=== PATIENT | male | born 1955 | race Caucasian/White ===

== ENCOUNTER 2024-01-04 06:32 | Emergency (ER) | payer OTHER, SELFPAY ==
[2024-01-04 06:34] VITALS: BP 197/116
[2024-01-04 06:51] VITALS: BP 198/97
[2024-01-04 07:00] VITALS: BP 193/97
[2024-01-04 07:02] VITALS: BMI 26.2
--- NOTE | 2024-01-04 07:54 | ED.GENMED ---
Addendum entered and electronically signed by Oneal Hansen Jr., PA-C 01/04/24 12:17:
Patient of note had an elevated blood pressure throughout ER stay. He has not been following up with primary care doctor for multiple years. Does not have chest pain or any symptoms consistent with hypertensive emergency. No significant lab
abnormalities. Patient was advised for very close follow-up with a primary care doctor for reassessment as he will likely need chronic blood pressure medication moving forward.
Original Note:
History of Present Illness
General
Chief Complaint: Bowel Problem
Source: patient
Exam Limitations: none
Time Seen by Provider: 01/04/24 06:59
Nursing documentation reviewed up to this point in time: agreed with
Travel History
Have you had any contact with someone who has COVID-19?: No
Do you have any symptoms of coronavirus? Fever > 100 degrees, chills, cough, shortness of breath, sore throat, loss of taste or smell, muscle aches, or headache?: No
History of Present Illness
History of Present Illness:
68-year-old male past medical history of hypertension constipation presenting to the emergency department today with concerns of significant bowel movement changes constipation bloating over the past few weeks. Has tried MiraLAX and mag citrate at
home without relief. Denies specific chest pain nausea vomiting
Review of Systems
Review of Systems
Allergies reviewed?: Yes
All Other Systems: ROS reviewed and negative except as documented in HPI and ROS
Phy Exam
Physical Exam
Physical Exam:
GENERAL: Alert , in no apparent distress
EYE: pupils equal and reactive
NECK: Supple, no significant adenopathy.
ENT: o/p clr, mmm.
CARDIAC: Regular rate and rhythm .
LUNGS: Clear breath sounds bilaterally, no acute respiratory distress, no wheezes/rales/rhonchi
ABDOMEN: Distention soft, without focal tenderness, no r/g, no cvat
NEUROLOGICAL: Alert and oriented, no focal neuro deficits
SKIN: Warm and dry, skin intact.
MUSCULOSKELETAL: No edema, well perfused.
PSYCH: Normal and appropriate interaction.
Course
Orders/Labs/Results
Orders:
Orders
01/04/24 07:28
Iohexol [Omnipaque] See Protocol PO NOW STA
01/04/24 07:29
CT Abd/pel W Iv And Oral Contr Urgent
Comment:
Reason For Exam: abd pain, bowel movement changes recently distensi
01/04/24 08:02
Complete Blood Count/With Diff Urgent
Comprehensive Metabolic Panel Urgent
Lipase Urgent
Urinalysis Reflex To Culture Urgent
Date Specimen was Collected: 01/04/24
Time Specimen was Collected: 07:50
Abnormal Lab Results
01/04/24
08:02
MPV 12.3 H fL
(7.4-10.4)
Absolute Lymphs (auto) 0.9 L 10^3/uL
(1.2-3.4)
Neutrophils % 78.6 H %
(42.2-75.2)
Lymphocytes % 13.6 L %
(20.5-51.1)
Glucose 129 H mg/dl
(70-99)
Calcium 10.3 H mg/dl
(8.4-10.2)
01/04/24 08:02
01/04/24 08:02
Vital Signs
Initial and Last Documented VS:
Initial Vital Signs
Temp Pulse Resp BP Pulse Ox
97.8 F 92 24 197/116 98
01/04/24 06:34 01/04/24 06:34 01/04/24 06:34 01/04/24 06:34 01/04/24 06:34
Last Documented Vital Signs
Temp Pulse Resp BP Pulse Ox
97.8 F 82 16 205/102 98
01/04/24 06:34 01/04/24 10:55 01/04/24 10:55 01/04/24 10:55 01/04/24 10:55
MDM/Problems Addressed
MDM/Problems Addressed:
68-year-old male presenting to the emergency department today with concerns of constipation distention worsening over the past few weeks. Patient denies ever having colonoscopy does not have a primary care doctor. CT scan performed that showed
constipation otherwise no emergent findings advised for close follow-up with GI return precautions given.
*Critical Care Note
Total Time (30-74mins, 75-104mins- exclusive of procedures): Not Applicable
ED Attending Note
-
Portions of this chart may have been created with voice recognition software.� Occasional wrong word or��sound alike� substitutions may have occurred due to the inherent limitations of voice recognition software.
Discharge Plan
Departure
Patient Disposition: Home (Routine Discharge)
Date of Disposition: 01/04/24
Time of Disposition: 12:00
Patient with high blood pressure during this ER visit?: No
Condition: Good
Covid-19: Not Applicable
Discharge Problem:
Constipation
Instructions: Constipation, Adult (DC)
Prescriptions:
New
docusate sodium [Colace] 100 mg capsule
100 mg PO DAILY Qty: 14 0RF
Referrals:
Tereza Lynn MD [Active] - Follow up in 5-7 days
UNKNOWN - PT DOES,NOT KNOW [Family Provider] -
Activity Restrictions/Additional Instructions:
You came to the emergency department today with concerns of bowel movement changes distention. Here you are found to have constipation no emergent findings otherwise. Please take MiraLAX once daily as well as the enema once every few days as well
as Colace 1-2 times daily and follow-up closely with GI for further management. Return to the emergency department for any worsening, new or concerning symptoms.
Interventions
Interventions:
*Risk Screen - Suicide Last Done: 01/04/24 06:34
*General Assessment Last Done: 01/04/24 06:41
*Neglect/Abuse Screening Last Done: 01/04/24 06:34
ED- Fall Risk Assessment Last Done: 01/04/24 06:41
*ED COVID-19 Vaccine History Last Done: 01/04/24 06:41
HZ-Hwzgqo-Jbparxiivp Assessment Last Done: 01/04/24 08:10
Discharge Date and Time
Print Language: INDONESIAN
[2024-01-04 08:00] VITALS: BP 193/107
[2024-01-04] MEDS: OMNIPAQUE 50 ML PO (08:08)
[2024-01-04 08:25] LABS: % Basophils 0.4 % (0-2); % Eosinophils 0.9 % (0-6); % Immature Granulocytes 0.4 % (0-0.5); % Lymphocytes 13.6 % (20.5-51.1); % Monocytes 6.1 % (1.7-9.3); % Neutrophils 78.6 % (42.2-75.2); Absolute Eosinophils 0.1 10^3/uL (0-0.7); Absolute Lymphocytes 0.9 10^3/uL (1.2-3.4); Absolute Monocytes 0.4 10^3/uL (0.1-0.6); Absolute Neutrophils 5.4 10^3/uL (1.4-6.5); Hematocrit 48.2 % (39.0-52.0); Hemoglobin 16.1 g/dL (13.0-18.0); Mean Corp Hgb Conc. 33.4 g/dL (33.0-37.0); Mean Corpuscular Hgb 29.9 pg (27.0-31.0); Mean Corpuscular Volume 89.4 fL (80.0-94.0); Mean Platelet Volume 12.3 fL (7.4-10.4); Nucleated Red Blood Cells % 0 % (-); Platelet Count 201 10^3/uL (130-400); Red Blood Cell Count 5.39 10^6/uL (4.70-6.10); Red Cell Dist. Width 13.2 % (11.5-14.5); White Blood Cell Count 6.8 10^3/uL (4.8-10.8)
[2024-01-04 08:31] LABS: Urine Albumin Negative (Neg - Trace); Urine Bilirubin Negative (Negative); Urine Character Clear (Clear); Urine Color Yellow; Urine Glucose Negative (Negative); Urine Ketone Negative (Negative); Urine Leukocyte Negative (Negative); Urine Nitrite Negative (Negative); Urine Occult Blood Negative (Negative); Urine Urobilinogen Negative (Neg - 1+); Urine pH 6.5 (5.0-9.0)
[2024-01-04 08:38] LABS: ALT (SGPT) 21 U/L (0-50); AST (SGOT) 28 U/L (17-59); Albumin 4.6 g/dl (3.5-5.0); Alkaline Phosphatase 90 U/L (38-126); Blood Urea Nitrogen 17 mg/dl (9-20); Calcium 10.3 mg/dl (8.4-10.2); Carbon Dioxide 30 mmol/L (22-30); Chloride 103 mmol/L (98-107); Estimated Creatinine Clearance 73 ml/min; Glucose 129 mg/dl (70-99); Lipase 76 U/L (23-300); Potassium 4.2 mmol/L (3.5-5.1); Sodium 141 mmol/L (135-145); Total Bilirubin 0.6 mg/dl (0.2-1.3); eGFR > 60.00
[2024-01-04 10:55] VITALS: BP 205/102
[2024-01-04 12:09] VITALS: BP 203/115
== END 2024-01-04 12:14 | disposition home or self-care (01) ==
LOC: EMR 06:32
PROVIDERS: Physician Assistant; EMERGENCY PHYSICIAN Emergency Medicine
DX: K59.00 Constipation, unspecified (principal); I10 Essential (primary) hypertension
CPT/HCPCS: 99284; 74177; 80053; 81003; 83690; 85025; Q9967

== ENCOUNTER → 2024-11-15 08:04 | Outpatient (REF) | payer OTHER, SELFPAY ==
[2024-11-15 09:22] LABS: % Basophils 0.5 % (0-2); % Immature Granulocytes 0.4 % (0-0.5); % Lymphocytes 22.8 % (20.5-51.1); % Monocytes 6.9 % (1.7-9.3); % Neutrophils 67.4 % (42.2-75.2); Absolute Eosinophils 0.1 10^3/uL (0-0.7); Absolute Lymphocytes 1.3 10^3/uL (1.2-3.4); Absolute Monocytes 0.4 10^3/uL (0.1-0.6); Absolute Neutrophils 3.7 10^3/uL (1.4-6.5); Hemoglobin 16.4 g/dL (13.0-18.0); Mean Corp Hgb Conc. 32.8 g/dL (33.0-37.0); Mean Corpuscular Hgb 29.9 pg (27.0-31.0); Mean Corpuscular Volume 91.2 fL (80.0-94.0); Mean Platelet Volume 12.7 fL (7.4-10.4); Nucleated Red Blood Cells % 0 % (-); Platelet Count 176 10^3/uL (130-400); Red Blood Cell Count 5.48 10^6/uL (4.70-6.10); Red Cell Dist. Width 13.4 % (11.5-14.5); Urine Albumin Negative (Neg - Trace); Urine Bilirubin Negative (Negative); Urine Character Clear (Clear); Urine Color Yellow; Urine Glucose Negative (Negative); Urine Ketone Negative (Negative); Urine Leukocyte Negative (Negative); Urine Nitrite Negative (Negative); Urine Occult Blood Negative (Negative); Urine Urobilinogen Negative (Neg - 1+); White Blood Cell Count 5.5 10^3/uL (4.8-10.8)
[2024-11-15 09:41] LABS: ALT (SGPT) 23 U/L (0-50); AST (SGOT) 31 U/L (17-59); Albumin 4.7 g/dl (3.5-5.0); Alkaline Phosphatase 85 U/L (38-126); Blood Urea Nitrogen 19 mg/dl (9-20); Calcium 10.7 mg/dl (8.4-10.2); Carbon Dioxide 33 mmol/L (22-30); Chloride 101 mmol/L (98-107); Glucose 121 mg/dl (70-99); HDL Cholesterol 64 mg/dl; LDL Cholesterol, Calculated 146 mg/dl; Potassium 4.3 mmol/L (3.5-5.1); Sodium 144 mmol/L (135-145); Total Cholesterol 234 mg/dl (50-199); Total Protein 7.3 g/dl (6.3-8.2); Triglyceride 124 mg/dl (10-149); Very Low Density Lipoprotein 24 mg/dl (0-30); eGFR > 60.00
[2024-11-15 10:02] LABS: Microalbumin, Random Urine 1.1 mg/dl (0.6-1.7); Microalbumin/creatinine Ratio 8.3 mg/g
[2024-11-15 10:11] LABS: PSA, Total - Screen 3.46 ng/ml (0.0-4.0); TSH 3.66 uIU/ml (0.47-4.68)
[2024-11-15 10:30] LABS: Glycohemoglobin (HgbA1c) 6.1 % (4.0-5.6)
[2024-11-16 18:51] LABS: Hepatitis C Antibody Negative (Negative)
== END ==
LOC: REG 08:04
PROVIDERS: ATTENDING PHYSICIAN Family Medicine
DX: Z00.00 Encounter for general adult medical examination without abnormal findings (principal); I10 Essential (primary) hypertension
CPT/HCPCS: 36415; 80053; 80061; 81003; 82043; 82570; 83036; 84443; 85025; 86803; G0103